=== PATIENT | female | born 1965 | race Caucasian/White ===

== ENCOUNTER 2020-12-30 18:31 | Emergency (ER) | payer MEDICARE, OTHER ==
[~2020-12-30 18:31] MED LIST: CEFUROXIME500 MG PO; CELEXA20 MG PO; IPRAT-ALBUT 0.5-3 ML INH; NEURONTIN 300300 MG PO; OXYGEN; PHENERGAN 12.12.5 M1 PO; PREDNISONE10 MG PO; PREDNISONE20 MG PO; PREMARIN 0.60.625 MG PO; PROAIR HFA8.5 GM INH; SINGULAIR10 MG PO; SPIRIVA RESPIMAT4 GM INH; SYMBICORT 16010.2 GM INH; VENTOLIN HFA 66.7 GM INH; ZESTRIL/PRINIVI10 MG PO; ZITHROMAX500 MG PO
[2020-12-30 19:47] LABS: HEMOGLOBIN 12.9 gm/dl (12.3-15.3); RED BLOOD COUNT 4.13 M/UL (4.00-5.10); WHITE BLOOD COUNT 4.6 K/UL (4.5-11.0)
[2020-12-30 20:14] LABS: BUN/CREATININE RATIO 14 (0-10)
[2020-12-30] MEDS ORDERED: DOXYCYCLINE HY100 MG PO ×2 (20:38→20:40)
[2020-12-30] MEDS ORDERED: ALBUTEROL2.5 MG/3 M INH (20:38)
[2020-12-30] MEDS ORDERED: VENTOLIN HFA 66.7 GM INH (20:38)
[2020-12-30] MEDS ORDERED: PREDNISONE50 MG PO (20:38)
== END 2020-12-30 21:00 | disposition home or self-care (01) ==
LOC: ER1 18:31
PROVIDERS: Emergency Medicine
DX: J44.1 Chronic obstructive pulmonary disease with (acute) exacerbation (principal); Z90.710 Acquired absence of both cervix and uterus; F17.200 Nicotine dependence, unspecified, uncomplicated; Z20.822 Contact with and (suspected) exposure to COVID-19
CPT/HCPCS: 36600; 71045; 80053; 82550; 82553; 82803; 83605; 83735; 83874; 83880; 84484; 85025; 85379; 87040; 93005; 94640; 94664; 96374; 96375; 99285; J0696; J2930; U0002

== ENCOUNTER 2021-04-09 16:53 | Emergency (ER) | payer MEDICARE, OTHER ==
[~2021-04-09 16:53] MED LIST changes: +ALBUTEROL2.5 MG/3 M INH; +DOXYCYCLINE HY100 MG PO; +PREDNISONE50 MG PO
[2021-04-09 17:40] LABS: HEMOGLOBIN 16.5 gm/dl (12.3-15.3); RED BLOOD COUNT 5.26 M/UL (4.00-5.10); WHITE BLOOD COUNT 10.3 K/UL (4.5-11.0)
[2021-04-09 18:04] LABS: BUN/CREATININE RATIO 8 (0-10)
[2021-04-10] MEDS ORDERED: CEPHALEXIN500 MG PO (04:20)
[2021-04-10] MEDS ORDERED: PHENERGAN 12.12.5 M1 PO (04:20)
== END 2021-04-10 04:50 | disposition home or self-care (01) ==
LOC: ER1 16:53
PROVIDERS: Physician Assistant
DX: N83.202 Unspecified ovarian cyst, left side (principal); J44.1 Chronic obstructive pulmonary disease with (acute) exacerbation; I50.9 Heart failure, unspecified; G40.909 Epilepsy, unspecified, not intractable, without status epilepticus; Z20.822 Contact with and (suspected) exposure to COVID-19
CPT/HCPCS: 80053; 81001; 82150; 83690; 85025; 93005; 96374; 99284; J2405; Q9967; U0002